=== PATIENT | female | born 1955 | race Caucasian/White ===

== ENCOUNTER → 2019-12-21 07:33 | Outpatient (CLI) | payer MEDICARE, SELFPAY ==
--- NOTE | ~2019-12-21 | US_ITS ---
US abdomen complete DATE: 12/21/2019 08:11 INDICATION: Abnormal weight loss. Decreased appetite. Family history of pancreatic cancer. Status post cholecystectomy. TECHNIQUE: Real-time imaging of the abdomen; Doppler analysis COMPARISON: None FINDINGS: The abdominal aorta is of normal caliber. The inferior vena cava is unremarkable. No hepatic or pancreatic space-occupying mass lesion is evident. Normal hepatopedal portal venous gonzález w direction. The gallbladder is surgically absent. The common bile duct measures 5.6 mm, within normal range. The right kidney measures approximately 9.8 cm length, left kidney 10.7 cm length. No renal mass lesi on or hydronephrosis. Normal splenic size. IMPRESSION: No significant abnormality Reviewed, dictated and finalized at [facility]. Reviewed, dictated and finalized at [facility]. IMPRESSION: No significant abnormality
== END ==
PROVIDERS: PCP Family Medicine; Visit Provider Family Medicine
DX: R63.4 Abnormal weight loss (principal); Z80.0 Family history of malignant neoplasm of digestive organs
CPT/HCPCS: 76700

== ENCOUNTER → 2020-12-19 13:45 | Outpatient (CLI) | payer MEDICARE, SELFPAY ==
--- NOTE | ~2020-12-19 | XR_ITS ---
XR ankle LT min 3V 12/19/2020 14:16 Indication: Left ankle pain Procedure: 4 views left ankle Comparison: No prior studies for comparison. Findings: There is an avulsion fracture involving the distal aspect of the fibula. Ankle mortise inta ct. Small degenerative calcaneal enthesophyte. There is also an avulsion seen dorsally on the lateral view, likely also originating from the fibula. Impression: 1: Avulsion fracture of the distal fibula with adjacent soft tissue swelling. Reviewed, dictated and finalized at [facility]. Impression: 1: Avulsion fracture of the distal fibula with adjacent soft tissue swelling.
== END ==
PROVIDERS: PCP Family Medicine; Visit Provider Family Medicine
DX: S82.832A Other fracture of upper and lower end of left fibula, initial encounter for closed fracture (principal); M25.572 Pain in left ankle and joints of left foot
CPT/HCPCS: 73610